=== PATIENT | female | born 1960 | race Caucasian/White ===

== ENCOUNTER 2023-11-19 19:37 | Emergency (ER) | payer BC | END 2023-11-19 20:41 | disposition home or self-care (01) | LOC: JP.ED 19:37 | DX: F41.0 Panic disorder [episodic paroxysmal anxiety] (principal); I10 Essential (primary) hypertension; E03.9 Hypothyroidism, unspecified; Z86.16 Personal history of COVID-19; Z90.49 Acquired absence of other specified parts of digestive tract; Z90.710 Acquired absence of both cervix and uterus; Z79.899 Other long term (current) drug therapy; Z79.890 Hormone replacement therapy | CPT/HCPCS: 99285 ==